=== PATIENT | female | born 1955 | race Caucasian/White ===

== ENCOUNTER 2016-10-07 14:36 | Emergency (ER) | payer OTHER ==
[2016-10-07 14:56] VITALS: TEMP 98.2; BMI 30.1
[2016-10-07] MEDS ORDERED: OXYCODONE/APAP 5/325MG COMBO TABLET PO ONE (16:30)
[2016-10-07] MEDS ORDERED: OXYCODONE/APAP 5/325MG COMBO TABLET ONE (16:39)
--- NOTE | 2016-10-07 17:20 | PDOC ---
History of Present Illness - General History Source: Patient Exam Limitations: No Limitations <Keenan Oliver - Last Filed: 10/07/16 17:20> - General History Source: Patient Exam Limitations: No Limitations - History of Present Illness Initial Comments: 10/07/16 17:41 The patient is a 61 year old female, with a significant past medical history of HTN and CAD s/p stents (on Plavix and aspirin), who presents to the emergency department with a right wrist/arm pain s/p a mechanical fall at approximately 11 :30 this morning. The patient denies any head trauma or LOC. The patient visited an urgent care earlier today, where she had x-rays done and was sent to the ED for further evaluation. The patient is right hand dominant. Her daughter is with her in the ED. The patient denies any extremity weakness or numbness. Allergies: None reported. Past Surgical History: Stent, Cholecystectomy Social History: Non smoker. Denies alcohol or drug use. PCP: Dr. Isidoro Templeton <Allyson Fuentes - Last Filed: 10/07/16 17:43> - General Chief Complaint: Injury Stated Complaint: RT WRIST FRACTURE (REFERRAL SENT) Time Seen by Provider: 10/07/16 16:28 Past History - Past Medical History Cardiac Disorders: Yes (cad) Dialysis: Yes (border line) HTN: Yes - Surgical History Cardiac Surgery: Yes (stents) Cholecystectomy: Yes - Psycho/Social/Smoking Cessation Hx Anxiety: No Suicidal Ideation: No Smoking History: Never smoked Have you smoked in the past 12 months: No Information on smoking cessation initiated: No Hx Alcohol Use: No Drug/Substance Use Hx: No Substance Use Type: None <Keenan Oliver - Last Filed: 10/07/16 17:20> <Allyson Fuentes - Last Filed: 10/07/16 17:43> - Past Medical History Allergies/Adverse Reactions: Allergies Allergy/AdvReac Type Severity Reaction Status Date / Time No Known Allergies Allergy Verified 10/07/16 14:52 Home Medications: Ambulatory Orders Amlodipine Besylate [Norvasc -] 5 mg PO DAILY 10/07/16 Aspirin [ASA -] 81 mg PO DAILY 10/07/16 Clopidogrel Bisulfate [Plavix -] 75 mg PO DAILY 10/07/16 Losartan/Hydrochlorothiazide [Losartan-Hctz 50-12.5 mg Tab] 0 each PO DAILY Metformin HCl [Glucophage] 500 mg PO DAILY 10/07/16 Metoprolol Succinate [Toprol Xl] 100 mg PO DAILY 10/07/16 Oxycodone HCl/Acetaminophen [Percocet 5-325 mg Tablet] 1 tab PO Q6H PRN #20 tablet MDD 4 10/07/16 Rosuvastatin [Crestor -] 20 mg PO DAILY 10/07/16 Review of Systems - Review of Systems Able to Perform ROS?: Yes Comments:: 10/07/16 17:41 GENERAL/CONSTITUTIONAL: No fever or chills. No weakness. HEAD, EYES, EARS, NOSE AND THROAT: No change in vision. No ear pain or discharge. No sore throat. CARDIOVASCULAR: No chest pain or shortness of breath. RESPIRATORY: No cough, wheezing, or hemoptysis. GASTROINTESTINAL: No nausea, vomiting, diarrhea or constipation. GENITOURINARY: No dysuria, frequency, or change in urination. MUSCULOSKELETAL: +Right wrist/arm pain. No muscle swelling. No neck or back pain. SKIN: No rash. NEUROLOGIC: No headache, vertigo, loss of consciousness, or change in strength/ sensation. ENDOCRINE: No increased thirst. No abnormal weight change. HEMATOLOGIC/LYMPHATIC: No anemia, easy bleeding, or history of blood clots. ALLERGIC/IMMUNOLOGIC: No hives or skin allergy. <Allyson Fuentes - Last Filed: 10/07/16 17:43> *Physical Exam - Vital Signs Last Vital Signs Temp Pulse Resp BP Pulse Ox 98.2 F 66 18 138/78 100 10/07/16 14:53 10/07/16 14:53 10/07/16 14:53 10/07/16 14:53 10/07/16 14:53 <Keenan Oliver - Last Filed: 10/07/16 17:20> - Vital Signs Last Vital Signs Temp Pulse Resp BP Pulse Ox 98.2 F 7 L 18 150/74 98 10/07/16 14:53 10/07/16 17:26 10/07/16 17:26 10/07/16 17:26 10/07/16 17:26 - Physical Exam Comments: 10/07/16 17:33 GENERAL: Awake, alert, and fully oriented, in no acute distress. HEAD: No signs of trauma. EYES: PERRLA, EOMI, sclera anicteric, conjunctiva clear. ENT: Auricles normal inspection, hearing grossly normal, nares patent, oropharynx clear without exudates. Moist mucosa. NECK: Normal ROM, supple, no lymphadenopathy, JVD, or masses. LUNGS: Breath sounds equal, clear to auscultation bilaterally. No wheezes, and no crackles. HEART: Regular rate and rhythm, normal S1 and S2, no murmurs, rubs or gallops. ABDOMEN: Soft, nontender, normoactive bowel sounds. No guarding, no rebound. No masses. EXTREMITIES: Right upper extremity, radial pulse intact. Capillary refill in all digits. Sensations intact in all digits. Right wrist in an urgent care volar splint, mild radial displacement. No clubbing, cyanosis or edema. No cords or erythema. NEUROLOGICAL: Cranial nerves II through XII grossly intact. Normal speech, normal gait. SKIN: Warm, dry, normal turgor, no rashes or lesions noted. <Allyson Fuentes - Last Filed: 10/07/16 17:43> Procedures - Splinting Splint Location: Right: Wrist Pre-Proc Neuro Vasc Exam: normal Hand-Made Type: orthoglass Splint Type: Yes: Sugar Tong Post-Proc Neuro Vasc Exam: normal Jose Bandage: 3" Sling: Yes Complications: No <Keenan Oliver - Last Filed: 10/07/16 17:20> ED Treatment Course - Medications Given in the ED: ED Medications Discontinued Medications Generic Name Dose Route Start Last Admin Trade Name Freq PRN Reason Stop Dose Admin Oxycodone/Acetaminophen 1 combo 10/07/16 16:30 10/07/16 16:44 Percocet 5/325 - PO 10/07/16 16:31 1 combo ONCE ONE Administration <Keenan Oliver - Last Filed: 10/07/16 17:20> - Medications Given in the ED: ED Medications Discontinued Medications Generic Name Dose Route Start Last Admin Trade Name Freq PRN Reason Stop Dose Admin Oxycodone/Acetaminophen 1 combo 10/07/16 16:30 10/07/16 16:44 Percocet 5/325 - PO 10/07/16 16:31 1 combo ONCE ONE Administration <Allyson Fuentes - Last Filed: 10/07/16 17:43> Medical Decision Making - Medical Decision Making 10/07/16 17:22 A portion of this note was documented by scribe services under my direction. I have reviewed the details of the note, within reason, and agree with the documentation with the following case summary and management plan written by me. Patient treated in the ED. Nursing notes are reviewed and incorporated into the medical decision-making. Vital signs reviewed. Peripheral IV access obtained by the nurse, laboratory studies are drawn and sent, reviewed and interpreted by myself. Vital Signs Temp Pulse Resp BP Pulse Ox 98.2 F 66 18 138/78 100 10/07/16 14:53 10/07/16 14:53 10/07/16 14:53 10/07/16 14:53 10/07/16 14:53 61-year-old female with past medical history of coronary disease with a stent on Plavix and aspirin presents with mechanical fall with fall on outstretched hand. Patient is right-handed dominant. Denies numbness, weakness. Pt went to an urgent care and had xrays performed and had a volar splint placed. The patient was directed to the ER for further evaluation. The patient had a copy of the CD with her. Xrays reviewed by me and Dr. Gracia ( orthopedics). Appears to have a distal radius fracture and likely Colles. Pt is neurovascularly intact. Dr. Gracia at bedside. Pt placed in sugartong splint and sling. As per Dr. Gracia, stop asa and plavix in preparation for outpatient surgery. Pt verbalizes understanding and agrees with plan. She will go home with family. I discussed the physical exam findings, ancillary test results and final diagnoses with the patient. I answered all of the patient's questions. The patient was satisfied with the care received and felt comfortable with the discharge plan and treatment plan. The patient will call their primary care physician within 24 hours to arrange follow-up and will return to the Emergency Department with any new, persistant or worsening symptoms. <Keenan Oliver - Last Filed: 10/07/16 17:20> *DC/Admit/Observation/Transfer - Discharge Dispostion Admit: No <Keenan Oliver - Last Filed: 10/07/16 17:20> - Attestations Scribe Attestion: 10/07/16 17:29 Documentation prepared by Allyson Fuentes, acting as chief medical officer for Keenan Oliver MD. <Allyson Fuentes - Last Filed: 10/07/16 17:43> Diagnosis at time of Disposition: Right wrist fracture Qualifiers: Encounter type: initial encounter Fracture type: closed Qualified Code(s): S62.101A - Fracture of unspecified carpal bone, right wrist, initial encounter for closed fracture - Discharge Dispostion Disposition: HOME Condition at time of disposition: Stable - Prescriptions Prescriptions: Oxycodone HCl/Acetaminophen [Percocet 5-325 mg Tablet] 1 tab PO Q6H PRN #20 tablet MDD 4 PRN Reason: Pain - Referrals Referrals: Isidoro Templeton [Primary Care Provider] - John Gracia MD [Staff Physician] - - Patient Instructions Printed Discharge Instructions: How to Use a Sling, DI for Wrist Fracture Additional Instructions: Take 650 mg tylenol every 4 hours as needed for pain. However, for severe pain relief, take a tablet of percocet every 6 hours as needed. Do not mix tylenol and percocet together, as percocet contains tylenol. Elevate the hand as much as you can. Do not take off the dressing. As per Dr. Gracia, please stop taking the aspirin and plavix in preparation for a procedure. Call his office tomorrow to schedule an appointment in the next several days.
[2016-10-07 17:27] VITALS: BP 150/74; PULSE 7
== END 2016-10-07 17:25 | disposition home or self-care (01) ==
LOC: JER 14:36
DX: S52.531D Colles' fracture of right radius, subsequent encounter for closed fracture with routine healing (principal); W18.39XD Other fall on same level, subsequent encounter; Y92.480 Sidewalk as the place of occurrence of the external cause; I10 Essential (primary) hypertension; E11.9 Type 2 diabetes mellitus without complications; Z79.84 Long term (current) use of oral hypoglycemic drugs; Z95.5 Presence of coronary angioplasty implant and graft; Z79.01 Long term (current) use of anticoagulants
CPT/HCPCS: 99282-25

== ENCOUNTER 2016-10-08 13:38 | Emergency (ER) | payer OTHER ==
[2016-10-08 13:59] VITALS: BP 125/75; PULSE 76; TEMP 98.6; BMI 31.8
[2016-10-08] MEDS ORDERED: ACETAMINOPHEN 325 MG TABLET (FP) ONE (14:49)
[2016-10-08] MEDS ORDERED: ACETAMINOPHEN 500 MG TABLET (FP) PO ONE (14:52)
--- NOTE | 2016-10-08 16:37 | PDOC ---
History of Present Illness - General Chief Complaint: Injury Stated Complaint: RT HAND PAIN Time Seen by Provider: 10/08/16 14:14 History Source: Patient Exam Limitations: No Limitations - History of Present Illness Initial Comments: 10/08/16 16:33 61-year-old female status post mechanical fall yesterday landing on her right wrist on the sidewalk. Patient went to an urgent care clinic within referred her to the ER since patient will likely need surgery. Patient was seen by Dr. Gracia and placed in a volar splint yesterday in the ER and told to follow- up in the office. Daughter was called by the office today and was told that the insurance was not accepted and needs to follow-up with another orthopedist. Patient arrives here with complaints of swelling and tenderness to the area but denied any sensory changes distally of injury. Patient is currently on aspirin and Plavix prescribed by Dr. Templeton. Occurred: reports: yesterday Severity: reports: moderate Pain Location: reports: upper extremity Method of Injury: Yes: fall Modifying Factors: improves with: None Loss of Consciousness: no loss of consciousness Associated Symptoms (Fall): denies symptoms Past History - Past Medical History Allergies/Adverse Reactions: Allergies Allergy/AdvReac Type Severity Reaction Status Date / Time No Known Allergies Allergy Verified 10/08/16 13:59 Home Medications: Ambulatory Orders Amlodipine Besylate [Norvasc -] 5 mg PO DAILY 10/07/16 Aspirin [ASA -] 81 mg PO DAILY 10/07/16 Clopidogrel Bisulfate [Plavix -] 75 mg PO DAILY 10/07/16 Losartan/Hydrochlorothiazide [Losartan-Hctz 50-12.5 mg Tab] 0 each PO DAILY Metformin HCl [Glucophage] 500 mg PO DAILY 10/07/16 Metoprolol Succinate [Toprol Xl] 100 mg PO DAILY 10/07/16 Oxycodone HCl/Acetaminophen [Percocet 5-325 mg Tablet] 1 tab PO Q6H PRN #20 tablet MDD 4 10/07/16 Rosuvastatin [Crestor -] 20 mg PO DAILY 10/07/16 Cardiac Disorders: Yes (cad stent 2015) Dialysis: Yes (border line) HTN: Yes - Surgical History Cardiac Surgery: Yes (stents) Cholecystectomy: Yes - Psycho/Social/Smoking Cessation Hx Anxiety: No Suicidal Ideation: No Smoking History: Former smoker Have you smoked in the past 12 months: No If you are a former smoker, when did you quit?: 2016 Information on smoking cessation initiated: No Hx Alcohol Use: No Drug/Substance Use Hx: No Substance Use Type: None Patient Lives Alone: Yes Lives with/in: lives alone Review of Systems - Review of Systems Able to Perform ROS?: Yes Constitutional: No: Symptoms Reported Cardiac (ROS): No: Symptoms Reported Musculoskeletal: Yes: Joint Pain (rt wrist), Joint Swelling (rt wrist) Integumentary: Yes: Bruising Neurological: No: Numbness, Tingling, Weakness Hematologic/Lymphatic: No: Symptoms Reported *Physical Exam - Vital Signs Last Vital Signs Temp Pulse Resp BP Pulse Ox 98.6 F 76 18 125/75 100 10/08/16 13:56 10/08/16 13:56 10/08/16 13:56 10/08/16 13:56 10/08/16 13:56 - Physical Exam General Appearance: Yes: Nourished, Appropriately Dressed. No: Apparent Distress Respiratory/Chest: positive: Lungs Clear, Normal Breath Sounds. negative: Respiratory Distress, Accessory Muscle Use Cardiovascular: positive: Regular Rhythm, Regular Rate. negative: Murmur Extremity: positive: Normal Capillary Refill, Normal Inspection, Tender (over dorsal aspect of right radius. ). negative: Normal Range of Motion Integumentary: positive: Swelling (to ) Neurologic: positive: Motor Strength 5/5 (right fingers mobile which are pink and warm) ED Treatment Course - RADIOLOGY Radiology Studies Ordered: Category Date Time Status WRIST- RIGHT [RAD] Stat Radiology 10/08/16 15:02 Completed - Medications Given in the ED: ED Medications Discontinued Medications Generic Name Dose Route Start Last Admin Trade Name Freq PRN Reason Stop Dose Admin Acetaminophen 975 mg 10/08/16 14:52 10/08/16 14:54 Tylenol - PO 10/08/16 14:53 975 mg ONCE ONE Administration Medical Decision Making - Medical Decision Making 10/08/16 16:38 Patient status post mechanical yesterday and sustained a Colles' fracture. Patient states was told by Dr. rocha office at the insurance is not accepted and came here today for clarification of what to do. Patient states has had pain to the site and states the Percocet was too strong but did alleviate discomfort. Patient states is followed by Dr. Templeton who she has an appointment with on to receive medical clearance. patient had x-rays done at an urgent care clinic so repeated the x-ray today which showed a slightly posterior displaced Colles' fracture of the right wrist. case discussed with ortho and states patient may follow-up in the office on Friday and to be placed on schedule next week for surgery. Patient's daughters spoke directly to with ortho via phone and appointment was made for Friday at 8:10 AM *DC/Admit/Observation/Transfer Diagnosis at time of Disposition: Right wrist fracture Qualifiers: Encounter type: sequela Qualified Code(s): S62.101S - Fracture of unspecified carpal bone, right wrist, sequela - Discharge Dispostion Disposition: HOME Condition at time of disposition: Good - Referrals Referrals: Isidoro Templeton [Primary Care Provider] - Cory Hightower MD [Staff Physician] - - Patient Instructions Printed Discharge Instructions: Colles' Fracture, DI for Wrist Fracture Additional Instructions: Elevate your right arm as much as possible higher than your heart. Apply ice to the affected area for the next 3 days is much as you can tolerate. Take medication as needed for discomfort. Please follow-up with Dr. Hightower on 10/11/16 at 8:10 am. - Post Discharge Activity Work/School Note: Back to Work
== END 2016-10-08 16:54 | disposition home or self-care (01) ==
LOC: JERFT 13:38 → JER 13:38
DX: S52.531D Colles' fracture of right radius, subsequent encounter for closed fracture with routine healing (principal); W18.39XD Other fall on same level, subsequent encounter; Y92.480 Sidewalk as the place of occurrence of the external cause; I11.0 Hypertensive heart disease with heart failure; E11.9 Type 2 diabetes mellitus without complications; Z79.84 Long term (current) use of oral hypoglycemic drugs; Z95.5 Presence of coronary angioplasty implant and graft
CPT/HCPCS: 73110-TC-RT; 99282-25

== ENCOUNTER 2016-10-16 13:24 | Day surgery (SDC) | payer OTHER ==
[2016-10-15 14:05] VITALS: BMI 31.6
[2016-10-16] MEDS ORDERED: MIDAZOLAM HCL 2 MG/2 ML SINGLE DOSE VIAL ONE (14:03)
[2016-10-16] MEDS ORDERED: PROPOFOL 20 ML ONE ×2 (14:07→16:01)
[2016-10-16] MEDS ORDERED: ROPIVACAINE HCL 0.5% 30ML VIAL ONE (14:26)
[2016-10-16] MEDS ORDERED: ONDANSETRON 4 MG/2 ML VIAL IVPUSH PRN (15:04)
[2016-10-16] MEDS ORDERED: ONDANSETRON 4 MG/2 ML VIAL ONE (17:20)
[2016-10-16] MEDS ORDERED: ONDANSETRON 4 MG/2 ML VIAL IVPUSH ONE (17:21)
[2016-10-16 19:26] VITALS: TEMP 98.4
[2016-10-16 19:34] VITALS: BP 128/72; PULSE 70
--- NOTE | 2016-10-17 19:57 | OP ---
DATE OF OPERATION: 10/16/2016 PREOPERATIVE DIAGNOSIS: Right comminuted displaced interarticular distal radius fracture. POSTOPERATIVE DIAGNOSIS: Right comminuted displaced interarticular distal radius fracture. OPERATIVE PROCEDURE: 1. Open reduction and internal fixation of right comminuted interarticular displaced distal radius fracture with internal fixation of 3 or more fragments. 2. Right brachioradialis tenotomy. SURGEON: Candace Kaplan MD GYPSUM BLOCK SETTER: NATHALY Obrien ANESTHESIA: Regional. COMPLICATIONS: None. ESTIMATED BLOOD LOSS: Minimal. INDICATIONS FOR PROCEDURE: The patient is a 61-year-old female with the above findings, indicated for operative treatment. Risks, benefits, alternatives were discussed with patient at length, proper informed consent was obtained. PROCEDURE: After proper identification of patient and correct operative site, patient was brought to operating room, placed supine on the table, prominences well padded. Regional anesthesia and sedation were given by the anesthesiologist. Intravenous antibiotics given. Time-out procedure was performed. Right upper extremity was prepped and draped in usual sterile fashion. A well-padded tourniquet was placed over the sterile prep. Esmarch bandage to exsanguinate the right upper extremity. Tourniquet was inflated to 250 mmHg. A longitudinal incision made over the volar aspect of the distal radius. Incision was taken sharply through skin, with blunt and sharp dissection through subcutaneous tissues. Flexor carpi radialis tendon along with the contents of the carpal canal were bluntly and gently retracted in an ulnarward direction for the remainder of the procedure. The pronator quadratus was divided and elevated off the distal radius. Comminuted fracture was noted. Fracture fragments including the radial styloid were attempted to be manipulated, however, the radial styloid was pulled by the brachioradialis, therefore, a brachioradialis tenotomy was performed in order to release this fragment. Once this was released, anatomic reduction was possible and it was held with an Arthrex distal radius locking plate. Distal locking screws and proximal nonlocking screws were used. This provided secure stable fixation of the fracture. Radiographs were used to confirm proper reduction of the fracture as well as placement and sizing of all hardware. Scapholunate interval and distal radioulnar joints were also stressed and found to be stable. The wound was irrigated with saline and repaired in layers including the pronator quadratus with 4-0 Vicryl and 4-0 Monocryl. Steri-Strips and sterile dressings and a wrist splint were placed. Patient was reversed from anesthesia and brought to the recovery room in stable condition. She tolerated procedure well. Suleiman Newsome, the assistant football coach, was integral throughout the procedure. The procedure could not have been performed without a skilled operative assistant football coach. CANDACE KAPLAN M.D. [id number]
== END 2016-10-16 17:50 | disposition home or self-care (01) ==
LOC: FASU 13:24
PROVIDERS: ATTEND Orthopaedic Surgery Hand Surgery
PROC: 0LN50ZZ Release Right Lower Arm and Wrist Tendon, Open Approach (ICD-10-PCS; 2016-10-16)
PROC: 0PSH04Z Reposition Right Radius with Internal Fixation Device, Open Approach (ICD-10-PCS; principal; 2016-10-16 15:30)
DX: S52.531A Colles' fracture of right radius, initial encounter for closed fracture (principal); X58.XXXA Exposure to other specified factors, initial encounter; Y93.9 Activity, unspecified; Y92.9 Unspecified place or not applicable
CPT/HCPCS: 73110-TC-RT; 94760

== ENCOUNTER → 2019-11-11 | Day surgery (SDC) | payer OTHER ==
--- NOTE | 2019-11-12 12:40 | PATH ---
Surgical Pathology Report Patient Name: SANTIAGO VILLARREAL [facility]. Rec. #: [id number] /Age/Gender: 1955 (Age: 64) / F Account: [id number] Location: [facility] Taken: 11/11/2019 Received: 11/11/2019 Reported: 11/12/2019 Physicians: Justin Palma M.D. Specimen(s) Received A: RIGHT BREATS SPECIMEN WITH CALCIFICATIONS B: RIGHT BREAST SPECIMEN WITHOUT CALCIFICATIONS Clinical History Nonpalpable lesion Mammographic findings: Microcalcification, suspicious Final Diagnosis A. BREAST, RIGHT, WITH CALCIFICATIONS, STEREOTACTIC BIOPSY: BENIGN BREAST TISSUE SHOWING FIBROADENOMA WITH ASSOCIATED STROMAL CALCIFICATIONS. FIBROCYSTIC CHANGES INCLUDING USUAL AND PAPILLARY DUCTAL HYPERPLASIA. B. BREAST, RIGHT, WITHOUT CALCIFICATIONS, STEREOTACTIC BIOPSY: BENIGN BREAST TISSUE SHOWING FIBROADENOMA WITH ASSOCIATED STROMAL CALCIFICATIONS. FIBROCYSTIC CHANGES INCLUDING USUAL DUCTAL HYPERPLASIA AND FOCAL SCLEROSING ADENOSIS WITH FEW ASSOCIATED CALCIFICATIONS. Electronically Signed Ruth Bishop M.D. Gross Description A. Received in formalin labeled "right breast specimen with calcification," is a 2.2 x 1.7 x 0.2 cm aggregate of multiple blanco-yellow, irregular to cylindrical portions of fibroadipose tissue. The formalin is filtered and the specimen is entirely submitted in one cassette. B. Received in formalin labeled "right breast specimen without calcifications is a 2.2 x 1.8 x 0.2 cm aggregate of multiple blanco-yellow, irregular to cylindrical portions of fibroadipose tissue. The formalin is filtered and the specimen is entirely submitted in one cassette. Time to formalin fixation: 5 minutes Total formalin fixation time: Approximately 6 hours. 11/11/2019 [facility]
== END | disposition home or self-care (01) ==
LOC: FMAMMOTONE 10:03
PROVIDERS: ATTEND Family Medicine
PROC: 0HBT3ZX Excision of Right Breast, Percutaneous Approach, Diagnostic (ICD-10-PCS; principal; 2019-11-11)
DX: D24.1 Benign neoplasm of right breast (principal); N64.89 Other specified disorders of breast; N60.81 Other benign mammary dysplasias of right breast; N60.21 Fibroadenosis of right breast; R92.1 Mammographic calcification found on diagnostic imaging of breast
CPT/HCPCS: 19081; 76098-TC-FY; 87899; 88305-TC; A4648

== ENCOUNTER 2020-11-24 17:26 | Emergency (ER) | payer OTHER ==
[2020-11-24 17:33] VITALS: BP 134/63; PULSE 77; TEMP 98.6; BMI 33.3
[2020-11-24] MEDS ORDERED: MECLIZINE HCL 25 MG TABLET (FP) PO ONE (18:17)
[2020-11-24] MEDS ORDERED: MECLIZINE HCL 25 MG TABLET (FP) ONE (18:24)
== END 2020-11-24 19:14 | disposition home or self-care (01) ==
LOC: JER 17:26
DX: R42 Dizziness and giddiness (principal)
CPT/HCPCS: 93005; 93010; 99283-25

== ENCOUNTER → 2023-12-18 | Day surgery (SDC) | payer OTHER, MEDICARE | END | disposition home or self-care (01) | LOC: FMAMMOTONE 09:47 | PROVIDERS: ATTEND Family Medicine | PROC: 0HBV3ZX Excision of Bilateral Breast, Percutaneous Approach, Diagnostic (ICD-10-PCS; principal; 2023-12-18) | DX: N60.11 Diffuse cystic mastopathy of right breast (principal); N60.21 Fibroadenosis of right breast; N60.22 Fibroadenosis of left breast; N64.89 Other specified disorders of breast | CPT/HCPCS: 19081; 76098-TC-FY; 87899; 88305-TC; 88341-TC; 88342-TC; A4648 ==